=== PATIENT | female | born 1965 | race African-American/Black ===

== ENCOUNTER 2023-05-03 10:59 | Emergency (ER) | payer OTHER ==
[~2023-05-03] VITALS: Ht 167.6 cm; Wt 65.0 kg
[2023-05-03 11:10] VITALS: O2SAT 96
[2023-05-03 13:22] LABS: CLARITY URINE CLEAR (CLEAR); COLOR URINE YELLOW (YELLOW); GLUCOSE URINE NEGATIVE (NEGATIVE); KETONES URINE NEGATIVE (NEGATIVE); LEUKOCYTE ESTERASE URINE 1+ (NEGATIVE); NITRITE URINE NEGATIVE (NEGATIVE); OCCULT BLOOD URINE NEGATIVE (NEGATIVE); PH URINE 5.5 (4.5-8.0); PROTEIN URINE NEGATIVE (NEGATIVE); SPECIFIC GRAVITY URINE 1.023 (1.005-1.030)
[2023-05-03 13:54] LABS: BACTERIA URINE TRACE; RBC URINE 0-2 /hpf (0-2); SQUAMOUS EPITHELIAL CELL URINE 1+ /lpf (RARE/1+); YEAST URINE NONE SEEN
[2023-05-03 13:55] LABS: MUCUS URINE TRACE /lpf (< = 2+)
[2023-05-03 15:09] VITALS: BP 165/94; PULSE 89; RESP 19; TEMP 98.1
== END 2023-05-03 16:18 | disposition home or self-care (01) ==
LOC: ER 10:59
DX: M54.50 Low back pain, unspecified (principal); R11.2 Nausea with vomiting, unspecified; Z90.710 Acquired absence of both cervix and uterus; Z98.890 Other specified postprocedural states
CPT/HCPCS: 81003; 99283